=== PATIENT | male | born 2000 | race Caucasian/White ===

== ENCOUNTER 2023-04-02 08:26 | Day surgery (SDC) | payer BC ==
[2023-04-02] VITALS (9 sets, daily range): BP systolic 90–118; BP diastolic 54–82; PULSE 57–73; RESP 10–16; O2SAT 97–99
[~2023-04-02] VITALS: Ht 180.3 cm; Wt 68.6 kg
[~2023-04-02 08:26] MED LIST: BUPIVAcaine/PF 2.5mg/ml (0.25%) 10ml vial ONE; DUPI300P SQ; clindamycin 600mg/D5W 50ml 50 ML IV ONE; famotidine 20mg tablet PO ONE; ringers solution, lacted 1,000 ML IV SCH
[2023-04-02] MEDS ORDERED: ringers solution, lacted 1,000 ML IV SCH (09:05)
[2023-04-02] MEDS ORDERED: morphine 2 MG/ML inj. syringe IV PRN (09:05)
[2023-04-02] MEDS ORDERED: labetalol 20mg/4ml (5mg/ml) syringe IV PRN (09:05)
[2023-04-02] MEDS ORDERED: enalaprilat dihydrate 2.5mg/2ml vial IV PRN (09:05)
[2023-04-02] MEDS ORDERED: ondansetron/PF 4mg/2ml inj IV PRN (09:05)
[2023-04-02] MEDS ORDERED: meperidine/PF 25mg/ml syringe IV PRN ×3 (09:05)
[2023-04-02] MEDS ORDERED: morphine 4 MG/ML inj SYRINge IV PRN (09:05)
[2023-04-02] MEDS ORDERED: proCHLORperazine 10 MG/2 ml inj IV PRN (09:05)
[2023-04-02] MEDS ORDERED: MIDAZolam 1 MG/ML 5ML VIAL ONE (10:54)
[2023-04-02] MEDS ORDERED: fentaNYL/PF 50MCG/1 ML 2ML syringe ONE (10:54)
[2023-04-02] MEDS ORDERED: ROPIVAcaine 0.5% (5mg/ml) 30ml vial ONE (10:56)
[2023-04-02] MEDS ORDERED: BUPIVAcaine 2.5mg/ml inj 50ml vial (contains preservative) ONE (11:15)
[2023-04-02] MEDS ORDERED: sevoflurane 250ml liquid IH ONE (11:22)
[2023-04-02] MEDS ORDERED: dexamethasone sod phosphate 10mg/ml inj ONE (11:22)
[2023-04-02] MEDS ORDERED: ondansetron/PF 4mg/2ml inj ONE (11:22)
[2023-04-02] MEDS ORDERED: LIDOcaine 1%/PF 5ML 10 MG/ML VIAL ONE (11:26)
[2023-04-02] MEDS ORDERED: LIDOcaine 2% (20mg/ml) 5ml vial ONE (11:26)
[2023-04-02] MEDS ORDERED: propofol inj 20 ML IV ONE (11:27)
[2023-04-02] MEDS ORDERED: BUPIVAcaine 0.25% w/Epi /PF 30ml vial IJ ONE (12:28)
== END 2023-04-02 14:40 | disposition home or self-care (01) ==
LOC: PAS 08:26
PROVIDERS: ATTEND Orthopaedic Surgery Hand Surgery
DX: S52.511A Displaced fracture of right radial styloid process, initial encounter for closed fracture (principal); S52.611A Displaced fracture of right ulna styloid process, initial encounter for closed fracture; G89.18 Other acute postprocedural pain; J45.909 Unspecified asthma, uncomplicated; F12.90 Cannabis use, unspecified, uncomplicated; Z79.899 Other long term (current) drug therapy; Z98.890 Other specified postprocedural states; Z91.041 Radiographic dye allergy status; Z88.0 Allergy status to penicillin; V89.2XXA Person injured in unspecified motor-vehicle accident, traffic, initial encounter; Y93.89 Activity, other specified; Y92.89 Other specified places as the place of occurrence of the external cause; Y99.8 Other external cause status
CPT/HCPCS: 25607; 64417; 82948; A6222; C1713; J1100; J2250; J2405; J2704; J2795; J3010; J3490; J7030; J7120; Z7506; Z7508; Z7512; A4215; A4565; A4618; A6449; A7000; C1769; S0020